=== PATIENT | male | born 1985 | race Asian ===

== ENCOUNTER 2016-07-24 11:11 | Emergency (ER) | payer BC ==
[2016-07-24 13:58] VITALS: BP 114/80
--- NOTE | 2016-07-24 14:48 | UC ---
Abdominal Pain Male HPI - HPI Summary HPI Summary: ONSET OF UPPER ABDOMINAL PAIN AND FULLNESS LAST NIGHT SEVERAL HOURS AFTER EATING [employer] MEAL. HAS SOME NAUSEA AND THINKS HE WOULD FEEL BETTER IF HE VOMITED BUT HE HAS NOT. NORMAL BM YESTERDAY. DOES NOT THINK HE HAS PASSED GAS TODAY. STATES HE FEELS FULL UP TOP AND HUNGRY DOWN LOW. NO FEVER. - History of Current Complaint Chief Complaint: UCAbdominalPain Stated Complaint: HEADACHE AND ABD PAIN Time Seen by Provider: 07/24/16 13:52 Hx Obtained From: Patient Onset/Duration: Sudden Onset, Lasting Hours, Still Present Timing: Constant Severity Initially: Moderate Severity Currently: Moderate Pain Intensity: 5 Pain Scale Used: 0-10 Numeric Location: Epigastric Radiates: No Character: Cramping Aggravating Factor(s):: Nothing Alleviating Factor(s): Nothing Associated Signs And Symptoms: Positive: Negative - Allergies/Home Medications Allergies/Adverse Reactions: Allergies Allergy/AdvReac Type Severity Reaction Status Date / Time Beer Allergy Rash Uncoded 07/24/16 13:58 PMH/Surg Hx/FS Hx/Imm Hx Previously Healthy: Yes Endocrine History Of: Denies: Diabetes, Thyroid Disease Cardiovascular History Of: Denies: Cardiac Disorders, Hypertension Respiratory History Of: Denies: COPD, Asthma GI/ History Of: Denies: Ulcer - Surgical History Surgical History: None - Family History Known Family History: Negative: Hypertension - Social History Alcohol Use: None Substance Use Type: None Smoking Status (MU): Never Smoked Tobacco Review of Systems Constitutional: Negative Skin: Negative Respiratory: Negative Cardiovascular: Negative Gastrointestinal: Abdominal Pain, Other - NAUSEA All Other Systems Reviewed And Are Negative: Yes Physical Exam Triage Information Reviewed: Yes Appearance: Well-Appearing, No Pain Distress, Well-Nourished Vital Signs: Initial Vital Signs Temp 99.3 F 07/24/16 13:51 Pulse 116 07/24/16 13:51 Resp 18 07/24/16 13:51 BP 114/80 07/24/16 13:51 Pulse Ox 97 07/24/16 13:51 Vital Signs Reviewed: Yes Eyes: Positive: Conjunctiva Clear ENT: Positive: Hearing grossly normal Neck: Positive: Supple Respiratory Exam: Normal Cardiovascular Exam: Normal Abdomen Description: Positive: Nontender, Soft. Negative: CVA Tenderness (R), CVA Tenderness (L), Distended, Guarding Bowel Sounds: Positive: Present Musculoskeletal: Positive: No Edema Neurological: Positive: Alert Psychological: Positive: Age Appropriate Behavior Skin: Negative: rashes Abd Pain Male Course/Dx - Differential Dx/Clinical Impression Provider Diagnoses: ABDOMINAL PAIN/GASTRITIS/REFLUX Discharge - Discharge Plan Condition: Stable Disposition: HOME Prescriptions: Omeprazole 40 mg PO DAILY #30 cap Patient Education Materials: Gastritis (ED), Gastroesophageal Reflux Disease ( ED) Referrals: Angle Carvajal MD [Medical Doctor] - 2 Weeks Additional Instructions: TAKE THE REFLUX MEDICINE IN THE MORNING (IDEALLY AT LEAST 30 MINUTES BEFORE YOU EAT). EAT SLOWLY. STAY UPRIGHT AT LEAST 30 MINUTES AFTER EATING. EAT SMALLER, MORE FREQUENT MEALS OPPOSED TO LARGE INFREQUENT MEALS. AVOID POSSIBLE TRIGGER FOODS - GREASY, SPICY, ACIDIC FOODS. CAFFEINE, ALCOHOL. FOLLOW-UP WITH YOUR PCP IN 2 WEEKS FOR RE-EVALUATION. GO TO THE ER WITHOUT FAIL IF YOUR SYMPTOMS WORSEN.
== END 2016-07-24 14:43 | disposition home or self-care (01) ==
LOC: UCEAST 11:11
DX: R10.10 Upper abdominal pain, unspecified (principal); R11.0 Nausea; K29.70 Gastritis, unspecified, without bleeding; K21.9 Gastro-esophageal reflux disease without esophagitis
CPT/HCPCS: 99202; G0463